=== PATIENT | female | born 1970 | race Caucasian/White ===

== ENCOUNTER 2021-06-15 20:20 | Inpatient (IN) | payer BC ==
[~2021-06-15] VITALS: Ht 157.5 cm; Wt 149.7 kg
[~2021-06-15 20:20] MED LIST: ACETAMINOPHEN325 M1 PO; LEVOTHYROXINE125 MCG PO; MOBIC7.5 MG PO; NAPROSYN500 MG PO
--- NOTE | 2021-06-16 00:18 | NUR ---
PROPOFOL TURNED DOWN TO 20MCG/KG/MIN, RASS SCORE CURRENTLY -4.
--- NOTE | 2021-06-16 01:20 | NUR ---
PT TRANSFERRED FROM ED TO CCU ROOM 120, PROPOFOL TURNED UP TO 40 MCG/KG/MIN FOR TRANSFER. TRANSFERRED TO BED FROM STRETCHER, SWITCHED TO STANDARD VENT. TV AT 550, RATE 25, FIO2 100%, PEEP 15, PIP 36, ETCO2 45. PTS SATS DROPPED WITH TRANSFER TO 80% AT ONE POINT, SLOWLY CAME UP TO 90%. PT LEFT TO RECOVER FOR A WHILE, THEN LINENS UNDERNEATH REMOVED AND PT PLACED ONTO PRONE POSITION MUCH POSSIBLE ONTO RIGHT SIDE. PT HAS LARGE AMOUNT OF ORAL SECRETIONS-MOUTH SUCTIONED WITH YANKAUR, INLINE SUCTIONING DONE WELL WITH RETURN OF DARK BROWN SPUTUM.
--- NOTE | 2021-06-16 01:40 | NUR ---
UPDATE GIVEN TO DR RAMIREZ REGARDING RESP STATUS, VS AND URINE OUTPUT. ORDERS GIVEN, WILL TRY TO TURN TV DOWN AND TURN UP PEEP NEEDED TO KEEP SATS UP.
--- NOTE | 2021-06-16 02:30 | NUR ---
BLOOD SUGAR 450, 6 UNITS REGULAR INSULIN GIVEN.
--- NOTE | 2021-06-16 02:45 | NUR ---
TV TURNED DOWN TO 500 BY RT.
--- NOTE | 2021-06-16 03:20 | NUR ---
DR RAMIREZ INFORMED OF BLOOD SUGAR 450, NO ORDERS AT THIS TIME.
--- NOTE | 2021-06-16 03:40 | NUR ---
100MCG IV FENTANYL GIVEN-PT MOVING MORE AND APPERAS SLIGHTLY UNCOMFORTABLE.
--- NOTE | 2021-06-16 04:30 | NUR ---
VENTILATOR ALARM WENT OFF, PT WAS GAGGING ON TUBE AND SKIN COLOR WAS PURPLE, SPO2 STARTED DROPPING. CALLED RT, KALYANI CHAWLA CALLED. DR RAMIREZ CALLED. PT TAKEN OFF VENT AND AMBU BAG USED TO TRY TO GET SATS UP. SATS UP TO 60% THEN STARTED DROPPING AGAIN, RT IN ASSISTING WITH VENT, TROUBLESHOOTING PT, OTHER CCU NURSES IN WELL, ASSISTING WITH POSITIONING PT AND ATTEMPTING TO GET SATS UP. LUNGS SOUNDS AUSCULTATED, MORE COARSE WET SOUNDS HEARD COMPARED TO LAST TIME. PROPOFOL AT 50MCG/KG/MIN.
--- NOTE | 2021-06-16 04:55 | NUR ---
CALL TO DR RAMIREZ, ORDER GIVEN FOR 20MG IV LASIX ONCE-GIVEN.
--- NOTE | 2021-06-16 05:20 | NUR ---
SPO2 HAS BEEN DROPPING, NOW 20'S, HR ALSO WENT FROM 70'S TO 40'S THEN 20. DR RAMIREZ NOTIFIED.
--- NOTE | 2021-06-16 05:35 | NUR ---
DR RAMIREZ IN TO ASSESS PT, TAKEN OFF VENTILATOR AND NO RESP NOTED, HEART RHYTHM ASYSTOLE AND NO PULSES FELT. TIME OF PRONOUNCED 0535.
--- NOTE | 2021-06-16 06:14 | NUR ---
Called to patient room shortly before 5am for a CODE BLUE. Assisted with aspects of resuscitation and ventilator management for approximately 45 minutes before the patient was promounced by Dr. Grande.
--- NOTE | 2021-06-16 07:48 | NUR ---
Received a call from [facility] at 0439 for a Code Blue and arrived at hospital at approx 0530. Checked in with [employer] Level Installation Technician and PT had passed at 0535. I contacted PT's family member at 0545. Family member, Mariam (cousin), said to contact home [employer] and she confirmed that she already had PT's personal belongings. Called [facility] at 0634 and they arrived at 0711 and removed the PT.
== END 2021-06-16 07:30 | DRG 208 ==
LOC: ED 20:20 → CCU 22:37
PROVIDERS: ADMIT Internal Medicine; ATTEND Internal Medicine
PROC: 5A1935Z Respiratory Ventilation, Less than 24 Consecutive Hours (ICD-10-PCS; principal; 2021-06-15)
PROC: 0BH18EZ Insertion of Endotracheal Airway into Trachea, Via Natural or Artificial Opening Endoscopic (ICD-10-PCS; 2021-06-15)
PROC: 5A09357 Assistance with Respiratory Ventilation, Less than 24 Consecutive Hours, Continuous Positive Airway Pressure (ICD-10-PCS; 2021-06-15)
PROC: 8E0ZXY6 Isolation (ICD-10-PCS; 2021-06-15)
PROC: 3E0333Z Introduction of Anti-inflammatory into Peripheral Vein, Percutaneous Approach (ICD-10-PCS; 2021-06-15)
PROC: XW033H5 Introduction of Tocilizumab into Peripheral Vein, Percutaneous Approach, New Technology Group 5 (ICD-10-PCS; 2021-06-15)
DX: U07.1 COVID-19 (principal); J12.82 Pneumonia due to coronavirus disease 2019; J80 Acute respiratory distress syndrome; N17.9 Acute kidney failure, unspecified; B17.9 Acute viral hepatitis, unspecified; Z66 Do not resuscitate; Z51.5 Encounter for palliative care; Z87.891 Personal history of nicotine dependence; Z98.890 Other specified postprocedural states; Z79.899 Other long term (current) drug therapy; Z85.850 Personal history of malignant neoplasm of thyroid; R73.9 Hyperglycemia, unspecified; E89.0 Postprocedural hypothyroidism
CPT/HCPCS: 31500; 36600; 71045; 80053; 82803; 83735; 85025; 94002; 94003; 94640; 94660; J1100; J1650; J1815; J1940; J2704; J3010; J3262; J7121; U0003